=== PATIENT | male | born 1945 | race Caucasian/White ===

== ENCOUNTER 2016-12-10 20:58 | Inpatient (IN) ==
[2016-12-11] MEDS ORDERED: *HR* Morphine 2 MG/ML SYRINGE IVP PRN ×3 (00:08→14:12)
[2016-12-11] MEDS: *HR* HYDROcodone/Acet 10/325 mg TABLET PO PRN ×2 (00:32→08:29)
[2016-12-11] MEDS ORDERED: Ondansetron 4 MG/2 ML VIAL IVP PRN (01:23)
[2016-12-11] MEDS ORDERED: Acetaminophen 325 MG TABLET PO PRN (01:23)
[2016-12-11] MEDS ORDERED: Naloxone 0.4 MG/ML INJ IVP PRN (01:23)
[2016-12-11] MEDS ORDERED: *HR* Dextrose 50 % in Water (Syg) 50 ML SYRINGE IVP PRN (01:31)
[2016-12-11] MEDS ORDERED: D5% in Water 1,000 ML IVC PRN (01:31)
[2016-12-11] MEDS ORDERED: Dextrose Gel 15 GM PO PRN ×2 (01:31)
--- NOTE | 2016-12-11 02:01 | Internal Med History&Physical ---
Date of Encounter: 12/11/16 Time of Encounter: 00:20 Assessment and Plan (1) Acute pancreatitis Current visit: No Status: Acute Patient has elevated lipase, CT abdomen shows pancreatitis. Etiology is undetermined. Patient has elevated bilirubin. - We will keep patient nothing by mouth. - IV fluid. - Pain management. - Follow up lipase level. Qualifiers: Pancreatitis type: unspecified pancreatitis type Acute pancreatitis complication: unspecified Qualified Code(s): K85.90 - Acute pancreatitis without necrosis or infection, unspecified (2) Obstructive jaundice Current visit: Yes Status: Acute Patient has obstructive jaundice, he has dark urine for 2 weeks and body weight loss. Need to further investigation. - We will consult GI. - Liver and gallbladder ultrasound to rule out gallstone. - Pt had no signs of infection now (normal white count, no fever). (3) Hypertension Current visit: Yes Status: Acute Continue home medications. Qualifiers: Hypertension type: essential hypertension Qualified Code(s): I10 - Essential (primary) hypertension (4) Diabetes Current visit: Yes Status: Acute Patient has diabetes on Levimir 80 units qhs and metformin at home. We will decrease Levimir dose to 28 units at patient is nothing by mouth now. Covered also with sliding scale. Qualifiers: Diabetes mellitus type: type 2 Diabetes mellitus complication status: without complication Diabetes mellitus [facility] insulin use: with predatory animal exterminator use Qualified Code(s): E11.9 - Type 2 diabetes mellitus without complications ; Z79.4 - halfway (current) use of insulin (5) DVT prophylaxis Current visit: Yes Status: Acute Heparin subcutaneously Internal Medicine - H&P: HPI Chief complaint: Abdominal pain Admitted From: Home Plans for Post Hospital Care: Home History of present illness: Mr. Rain is a 71 year old male transferred from [facility] for abdominal pain. Patient said he has a chronic abdominal pain for weeks with decreased appetite. He lost 18-20 pounds over last 2 weeks. Since 2 days ago, the pain is getting worse, patient to feel nauseous, and vomited once yesterday. Patient denies a fever, diarrhea, shortness of breath, or diaphoresis. Patient said that the pain is located on epigastric area and radiated to both sides of flank , cramps in, 7-8 out of 10 yesterday and a 5 out of 10 when I saw him. Patient did complain dark urine for 2 weeks. In [place] emergency room, he was found elevated lipase, and an elevated total and direct bilirubin. CT abdominal shows acute pancreatitis. Patient was admitted for pancreatitis and obstructive jaundice. I discussed the CODE STATUS with patient. He is a full code. Past Med Surg Social Fam HX - Past Medical History Medical history: arthritis, diabetes, hypertension, other Psychiatric history: no psych history - Social History Smoking Status: Former smoker Smokeless Tobacco Status: No Alcohol use: occasionally Drug use: none - Family History Mother Living Status: Hx Family Endocrine Disorder: Yes (DM) Hx Family Neurologic Disorders: Yes (Dementia) Internal Medicine - H&P: Meds Adalimumab [Humira Psoriasis] 40 mg SQ Q2W 12/10/16 [History] Amlodipine Besylate 10 mg PO DAILY 12/10/16 [History] Esomeprazole Magnesium [Nexium] 40 mg PO DAILY 12/10/16 [History] Furosemide [Lasix] 80 mg PO DAILY PRN 12/10/16 [History] HYDROcodone/Acet 10/325 mg [[place] 10-325 mg] 1 tab PO Q6HR 12/10/16 [History] Insulin DETEMIR [Levemir] 80 unit SQ HS 12/10/16 [History] Meloxicam 15 mg PO DAILY 12/10/16 [History] Metoprolol 100 mg PO BID 12/10/16 [History] Sildenafil Citrate [Viagra] 100 mg PO 12/10/16 [History] Valsartan [Diovan] 320 mg PO DAILY 12/10/16 [History] Vit D3/Folic Acid/B2/B6/B12 [Folgard Tablet] 1 each PO DAILY 12/10/16 [History] metFORMIN [Glucophage] 500 mg PO BID 12/10/16 [History] Allergies No Known Allergies Allergy (Verified 12/10/16 17:37) All Systems PM: A 10-system review of systems was performed and is negative for pertinent findings except as documented above in the HPI. - Constitutional Vitals: Temp Pulse Resp BP Pulse Ox 98.0 F 72 16 174/88 96 12/10/16 23:16 12/10/16 23:16 12/10/16 23:16 12/10/16 23:16 12/10/16 23:16 General appearance: Present: A&O X 3, no acute distress, answers questions appropriately - Head Head exam: Present: atraumatic, normocephalic - Eye Eye exam: Present: PERRL, conjuntiva pink, sclera anicteric Pupils: Present: PERRL - Neck Neck exam general surgery: Present: supple, trachea midline. Absent: lymphadenopathy - Respiratory Respiratory exam: Present: CTAB. Absent: accessory muscle use, rales, rhonchi, wheezes - Cardiovascular Cardiovascular exam: Present: RRR, +S1, +S2. Absent: diastolic murmur, gallop, rubs, systolic murmur - GI/Abdominal GI/Abdominal exam: Present: normal bowel sounds, soft, tenderness (Mild tenderness in epigastric area without rebound or guarding), no peritoneal signs. Absent: distended - Extremities Exam Extremities exam: Present: warm, radial pulses palpable and symetrical. Absent : calf tenderness, cyanotic, pedal edema - Neurological Exam Neurological exam: Present: CN II-XII intact, oriented X3, no focal deficits. Absent: pronater drift, facial droop, speech deficit - Skin Skin exam: Present: dry, intact
[2016-12-11] MEDS: Insulin DETEMIR 100 UNIT/ML X5UNITS SQ SCH ×2 (02:23→23:31)
[2016-12-11] MEDS: 0.9 % Sodium Chloride 1,000 ML IVC SCH ×3 (02:24→22:00)
[2016-12-11 05:00] LABS: Eosinophils # 0.1 K/mcL (0.0-0.6); Eosinophils % 3.4 %; Hematocrit 39.2 % (37.5-50.1); Immature Granulocytes % 0.3 % (0-4); Lymphocytes # 1.5 K/mcL (0.6-4.6); Lymphocytes % 40.2 %; Mean Corpuscular HGB Conc 33.2 g/dL (31.6-35.5); Mean Corpuscular Hemoglobin 30.4 pg (28.0-33.3); Mean Corpuscular Volume 91.6 fL (83.0-100.0); Mean Platelet Volume 11.8 fL (9.4-12.4); Monocytes # 0.4 K/mcL (0.0-1.3); Monocytes % 9.7 %; Neutrophils # 1.7 K/mcL (1.6-8.9); Platelet Count 113 K/mcL (140-400); Red Blood Count 4.28 M/mcL (4.19-5.50); Red Cell Distribution Width 14.2 % (11.5-14.5); Segmented Neutrophils % 45.4 %
[2016-12-11 05:01] LABS: INR 1.1; Prothrombin Time 12.3 Seconds (9.4-12.1)
[2016-12-11 05:12] LABS: Albumin/Globulin Ratio 0.9 (1.1-2.2); Bilirubin,Direct 6.2 mg/dL (0.0-0.5); Bilirubin,Indirect 1.7 mg/dL (0.0-1.2); Bilirubin,Total 7.9 mg/dL (0.2-1.2); Globulin 3.3 g/dL (2.4-3.5); Total Protein 6.3 g/dL (6.0-8.3)
[2016-12-11 05:15] LABS: BUN/Creatinine Ratio 18 (6-26); Blood Urea Nitrogen 19 mg/dL (8-26); Calcium 8.9 mg/dL (8.6-10.8); Carbon Dioxide 21 mEq/L (19-29); Chloride 108 mEq/L (98-109); Chol/HDL Ratio 9.4 (0-4.9); Cholesterol 225 mg/dL (< 200); Glucose 119 mg/dL (70-99); HDL Cholesterol 24 mg/dL (40-59); LDL Cholesterol,Calculated 122 mg/dL (0-99); Magnesium 1.2 mg/dL (1.6-2.6); Osmolality,Calculated 293 (280-300); Phosphorous 2.4 mg/dL (2.3-4.7); Potassium 3.5 mEq/L (3.5-4.5); Sodium 140 mEq/L (136-145); Triglycerides 395 mg/dL (< 150); eGFR For African Americans > 60 (> 60); eGFR For Non-African Americans > 60 (> 60)
[2016-12-11] MEDS: *HR* Heparin 5,000 UNIT/ML VIAL SQ SCH ×2 (05:59→17:06)
[2016-12-11] MEDS: Insulin LISPRO 300 UNITS/3 ML VIAL SQ SCH ×4 (05:59→23:30)
[2016-12-11] MEDS ORDERED: Insulin LISPRO 300 UNITS/3 ML VIAL SQ SCH ×2 (07:30→21:00)
[2016-12-11] MEDS: Pantoprazole 40 MG VIAL IVP SCH (08:29)
[2016-12-11] MEDS: Valsartan 160 MG TABLET PO SCH (08:29)
[2016-12-11] MEDS: amLODIPine 5 MG TABLET PO SCH (08:29)
[2016-12-11] MEDS ORDERED: Lidocaine -MPF 2% 5 ML VIAL INFILT ONE (09:09)
[2016-12-11] MEDS ORDERED: *HR* Succinylcholine 200 MG/10 ML VIAL IVP ONE (09:09)
[2016-12-11] MEDS ORDERED: *HR* Propofol 200 MG/20 ML VIAL IVP ONE (09:09)
[2016-12-11] MEDS ORDERED: Ondansetron 4 MG/2 ML VIAL IVP ONE ×2 (09:09→14:12)
--- NOTE | 2016-12-11 11:05 | Anesthesia Evaluation PreOp ---
Date of Encounter: 12/11/16 Time of Encounter: 12:51 - Past History Planned Operation: EUS/ERCP Cardiac History: HTN Pulmonary History: Former smoker (quit in , smoked for 20 years) CURTAIN WORKER History: Denies Any Significant HX Other Medical History: Diabetes Type II, GERD, Other (obstructive jaundice, psoriatic arthritis) Anesthesia History: No Prior Anesthetic Complications, Past Anesthesia Alcohol Use: occasionally Drug use: none Medications and Allergies Adalimumab [Humira Psoriasis] 40 mg SQ Q2W 12/10/16 [History] Amlodipine Besylate 10 mg PO DAILY 12/10/16 [History] Esomeprazole Magnesium [Nexium] 40 mg PO DAILY 12/10/16 [History] Furosemide [Lasix] 80 mg PO DAILY PRN 12/10/16 [History] HYDROcodone/Acet 10/325 mg [[place] 10-325 mg] 1 tab PO Q6HR PRN 12/10/16 [History ] Insulin DETEMIR [Levemir] 80 unit SQ HS 12/10/16 [History] Meloxicam 15 mg PO DAILY 12/10/16 [History] Sildenafil Citrate [Viagra] 100 mg PO AD PRN 12/10/16 [History] Valsartan [Diovan] 320 mg PO DAILY 12/10/16 [History] metFORMIN [Glucophage] 500 mg PO BID 12/10/16 [History] Cholecalciferol (D-3) [Vitamin D] 2,000 unit PO DAILY 12/11/16 [History] Exenatide Microspheres [Bydureon Pen] 2 mg SQ WE 12/11/16 [History] Metoprolol [Lopressor] 100 mg PO BID 12/11/16 [History] Pioglitazone HCl [Pioglitazone HCl] 30 mg PO DAILY 12/11/16 [History] Allergies No Known Allergies Allergy (Verified 12/11/16 11:34) - Meds/Allergy Pre-op Review Medications Reviewed: Yes Allergies Reviewed: Yes Beta Blockers on Current Med List: Yes If Beta Blockers taken, Date/Time (Last Dose taken): 12/11/2016 at 0829 Anesthesia Results - Labs 12/11/16 03:31 12/11/16 03:31 - Imaging EKG: report reviewed (10/02/2014 SR, 1st degree AV block, PVC's with marked rhythm irregularity) Anesthesia Exam Vital Signs/O2 Sat/Glucose, Most Recent Temp Pulse Resp BP Pulse Ox 98.5 F 77 17 170/90 95 12/11/16 10:32 12/11/16 10:32 12/11/16 10:32 12/11/16 10:32 12/11/16 10:32 Blood Glucose* 107 Height: 5'10'' Weight: 238 lbs NPO (# of Hours): 8 Pain Scale: 0 Pain Scale Used: Numeric (1 - 10) - HEENT Pupil (Motor): EOMI Mallampati: II Teeth: Normal Oral Opening: Greater than 3 - CURTAIN WORKER LOC: Oriented CURTAIN WORKER Motor: Normal RUE, Normal LUE, Normal RLE, Normal LLE, Normal Face CURTAIN WORKER Sensory: Normal: RUE, LUE, RLE, LLE, Face - Cardiac Rhythm: Regular Murmur: None - Pulmonary Breath Sounds: bilateral Clear Respiratory Effort: Symmetrical Anesthesia Assess/Plan ASA Score: 3 Modified Kelly Scale for Level of Consciousness: Cooperative, oriented, and tranquil Anesthetic Plan: General Monitoring Plan: Standard Monitors Recovery Plan: PACU
--- NOTE | 2016-12-11 12:12 | Gastroenterology Consult Note ---
<Jac Vazquez - Last Filed: 12/11/16 12:10> Date of Encounter: 12/11/16 Time of Encounter: 11:15 - Assessment and plan (1) Obstructive jaundice Current Visit: Yes Status: Acute Assessment and plan: Total bili 7.9, AST 180, ALT 339, alkaline phosphatase 162. Plan for EUS and ERCP today. Concern for mass due to rapid weight loss and elevated hepatic panel. Keep pt NPO. (2) Acute pancreatitis Current Visit: No Status: Acute Assessment and plan: CT A/P consistent with acute pancreatitis. Lipase 146 on presentation 132 today. Triglycerides elevated at 395. Check KINGS, ionized calcium, and IgG 4. Continue IV fluids, antibiotics, and pain control. Bilirubin and LFTs remain elevated. Qualifiers: Pancreatitis type: unspecified pancreatitis type Acute pancreatitis complication: unspecified Qualified Code(s): K85.90 - Acute pancreatitis without necrosis or infection, unspecified (3) Unintentional weight loss Current Visit: Yes Status: Acute Assessment and plan: Patient has lost approximately 20 pounds in the past 2 weeks. Plan for EUS and ERCP today. Keep patient NPO. - Time Spent With Patient Total time spent is greater than 50% in coordination of care (as documented) at patient's floor/unit and/or counseling patient: GI History of Present Illness - Data of Consult Patient: new to practice Consult date: 12/11/16 Requesting Physician: Adi Eid MD - Consult Narrative Reason for consult: Obstructive jaundice History of present illness: Mr. Rain is a 71 year old male with PMHx of arthritis, DM, HTN who was transferred from [place] ED for epigastric abdominal pain that radiates to bilateral flanks. He reported chronic abdominal pain for weeks with decreased appetite. He lost 18-20 lbs over the past 2 weeks. The pain has been worsening over the past few days and he is experiencing nausea and vomiting. He denies fever, chest pain, SOB, hematemesis, diarrhea, melena, or hematochezia. Patient did complain dark urine for 2 weeks. In [place] ED, he was found elevated lipase, and an elevated total and direct bilirubin. CT abdominal shows acute pancreatitis. We have been consulted for pancreatitis and obstructive jaundice. Procedures: Colonoscopy 11/28/2013 Dr. 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, 4mm hyperplastic polyp in rectum, diverticulosis NSAIDs: Meloxicam Anticoagulation: None Past Med Surg Social Fam HX - Past Medical History Medical history: arthritis, diabetes, hypertension, other Psychiatric history: no psych history - Social History Smoking Status: Former smoker Smokeless Tobacco Status: No Alcohol use: occasionally Drug use: none - Family History Mother Living Status: Hx Family Endocrine Disorder: Yes (DM) Hx Family Neurologic Disorders: Yes (Dementia) - Gastrointestinal Gastrointestinal: Present: as per HPI - Constitutional Constitutional: as per HPI - EENT Eyes: as per HPI Ears: Present: as per HPI Nose, mouth and throat: Present: as per HPI - Cardiovascular Cardiovascular ROS: Present: as per HPI - Respiratory Respiratory IM: Present: as per HPI - Genitourinary Genitourinary: Absent: change in color, Urinary frequency - Neurological ROS Neurological GI: Present: as per HPI - Hematologic/Lymphatic Hematologic/Lymphatic pediatric: Present: as per HPI - Musculoskeletal Musculoskeletal ROS GI: Present: as per HPI - Integumentary Integumentary GI: Present: as per HPI - Psychiatric ROS Psychiatric GI: Present: as per HPI - Endocrine Endocrine IM: Present: as per HPI - Constitutional Vitals: Temp Pulse Resp BP Pulse Ox 98.5 F 77 17 170/90 95 12/11/16 10:32 12/11/16 10:32 12/11/16 10:32 12/11/16 10:32 12/11/16 10:32 General appearance: Present: cooperative, A&O X 3, no acute distress, answers questions appropriately - Head Head exam: Present: atraumatic, normocephalic - Eye Eye exam: Present: scleral icterus - ENT ENT exam: Present: mucous membranes dry - Neck Neck exam general surgery: Present: normal inspection, trachea midline - Respiratory Respiratory exam: Present: CTAB. Absent: rales, rhonchi - Cardiovascular Cardiovascular exam: Present: RRR, +S1, +S2 - GI/Abdominal GI/Abdominal exam: Present: soft, tenderness (Epigastric), no peritoneal signs. Absent: distended, firm, guarding - Rectal Rectal exam: Present: deferred - Extremities Exam Extremities exam: Present: warm - Neurological Exam Neurological exam: Present: no focal deficits - Psychiatric Psychiatric exam: Present: normal affect, normal mood - Skin Skin exam: Present: dry, intact, warm. Absent: normal color (Jaundiced) Results - Labs CBC & Chem 7: 12/11/16 03:31 12/11/16 03:31 Labs: Last Result Calcium 8.9 mg/dL (8.6-10.8) 12/11/16 03:31 Triglycerides 395 mg/dL (< 150) H 12/11/16 03:31 Entire Visit Hgb 13.0 g/dL (12.9-16.9) 12/11/16 03:31 Hct 39.2 % (37.5-50.1) 12/11/16 03:31 PT 12.3 Seconds (9.4-12.1) H 12/11/16 03:31 Total Bilirubin 7.9 mg/dL (0.2-1.2) H 12/11/16 03:31 AST 180 Units/L (5-34) H 12/11/16 03:31 ALT 339 Units/L (0-55) H 12/11/16 03:31 Lipase 132 Units/L (8-78) H 12/11/16 03:31 - ABG ABG results: PT/INR, D-dimer PT 12.3 Seconds (9.4-12.1) H 12/11/16 03:31 Consult Discharge Plan - Plan Referrals: Ivan Ayala MD [Primary Care Provider] - <Chirag Fox - Last Filed: 12/11/16 18:33> Date of Encounter: 12/11/16 Time of Encounter: 14:00 - Time Spent With Patient Total time spent is greater than 50% in coordination of care (as documented) at patient's floor/unit and/or counseling patient: GI History of Present Illness - Data of Consult Requesting Physician: Adi Eid MD - Consult Narrative History of present illness: Mr. Rain is a 71 year old male - Constitutional Vitals: Temp Pulse Resp BP Pulse Ox 97.7 F 96 18 166/73 95 12/11/16 17:04 12/11/16 18:06 12/11/16 18:06 12/11/16 18:06 12/11/16 18:06 Results - Labs CBC & Chem 7: 12/11/16 03:31 12/11/16 03:31 Labs: Last Result Calcium 8.9 mg/dL (8.6-10.8) 12/11/16 03:31 Triglycerides 395 mg/dL (< 150) H 12/11/16 03:31 Entire Visit Hgb 13.0 g/dL (12.9-16.9) 12/11/16 03:31 Hct 39.2 % (37.5-50.1) 12/11/16 03:31 PT 12.3 Seconds (9.4-12.1) H 12/11/16 03:31 Total Bilirubin 7.9 mg/dL (0.2-1.2) H 12/11/16 03:31 AST 180 Units/L (5-34) H 12/11/16 03:31 ALT 339 Units/L (0-55) H 12/11/16 03:31 Lipase 132 Units/L (8-78) H 12/11/16 03:31 - ABG ABG results: PT/INR, D-dimer PT 12.3 Seconds (9.4-12.1) H 12/11/16 03:31 - Impressions Impressions Cath/Invasive Procedure 12/11/16 14:30 IMPRESSION: Fluoroscopy provided for ERCP procedure. Please see the intraoperative note for complete details. D/ / Mukesh Becker MD / Mukesh Becker MD Interpreting Provider: Mukesh Becker MD - Attending Attestation I examined this patient and my medical decision-making was reviewed with the [facility]/PA/Advanced Practice Nurse/Resident Physician. I agree with the documented findings, disposition and treatment plan as described except to the extent set forth below.
[2016-12-11] MEDS ORDERED: *HR* FentaNYL (PF) 100 MCG/2 ML VIAL ONE (12:22)
[2016-12-11] MEDS ORDERED: *HR* Promethazine 25 MG/ML VIAL IVP PRN (14:12)
[2016-12-11] MEDS ORDERED: *HR* Labetalol 100 MG/20 ML MDV IVP PRN (14:12)
[2016-12-11] MEDS ORDERED: *HR* HYDROmorphone 2 MG/ML SYRINGE IVP ONE (15:03)
[2016-12-11] MEDS ORDERED: *HR* HYDROmorphone 2 MG/ML SYRINGE ONE (15:03)
[2016-12-11] MEDS ORDERED: Indomethacin 50 MG SUPP.RECT RC ONE (16:12)
--- NOTE | 2016-12-11 16:28 | Anesthesia Evaluation Post Op ---
Date of Encounter: 12/11/16 Time of Encounter: 16:28 - Vital Signs Vital Signs: Selected Entries 12/11/16 16:22 Pulse Rate 84 Respiratory Rate 15 Blood Pressure 165/94 O2 Sat by Pulse Oximetry 93 - Lungs Lungs: Clear Ascult./Percussion - Airway Airway: Non-obstructed - Cardiovascular Regular Rate - Mental Status Mental Status: Alert & Oriented, Answers Appropriately - Pain Pain Scale: 0 Pain Scale used: Numeric (1 - 10) - Nausea Vomiting Nausea Vomiting: Not Present - Hydration Hydration: Ice chips (refused), Has not voided - Discharge PostOp Status: Transfer Patient to floor
[2016-12-11] MEDS: *HR* HYDROmorphone (PF) 1 MG/ML SYRINGE IVP PRN (19:19)
[2016-12-12] MEDS: *HR* HYDROmorphone (PF) 1 MG/ML SYRINGE IVP PRN ×2 (01:21→08:29)
[2016-12-12] MEDS: 0.9 % Sodium Chloride 1,000 ML IVC SCH (03:04)
[2016-12-12] MEDS: *HR* Heparin 5,000 UNIT/ML VIAL SQ SCH (05:26)
[2016-12-12] MEDS: Insulin LISPRO 300 UNITS/3 ML VIAL SQ SCH ×2 (05:28→11:32)
[2016-12-12 05:47] LABS: Hemoglobin 13.1 g/dL (12.9-16.9); Mean Corpuscular HGB Conc 34.5 g/dL (31.6-35.5); Mean Corpuscular Hemoglobin 31.6 pg (28.0-33.3); Mean Corpuscular Volume 91.8 fL (83.0-100.0); Mean Platelet Volume 12.2 fL (9.4-12.4); Platelet Count 116 K/mcL (140-400); Red Blood Count 4.14 M/mcL (4.19-5.50); Red Cell Distribution Width 14.1 % (11.5-14.5)
[2016-12-12 06:06] LABS: Alanine Aminotransferase 330 Units/L (0-55); Albumin 2.9 g/dL (3.5-5.0); Albumin/Globulin Ratio 0.9 (1.1-2.2); Alkaline Phosphatase 156 Units/L (38-126); Aspartate Amino Transferase 161 Units/L (5-34); BUN/Creatinine Ratio 18 (6-26); Bilirubin,Total 4.9 mg/dL (0.2-1.2); Blood Urea Nitrogen 15 mg/dL (8-26); Calcium 8.4 mg/dL (8.6-10.8); Carbon Dioxide 18 mEq/L (19-29); Chloride 108 mEq/L (98-109); Globulin 3.1 g/dL (2.4-3.5); Glucose 168 mg/dL (70-99); Osmolality,Calculated 289 (280-300); Sodium 137 mEq/L (136-145); eGFR For African Americans > 60 (> 60); eGFR For Non-African Americans > 60 (> 60)
[2016-12-12] MEDS: Pantoprazole 40 MG VIAL IVP SCH (08:28)
[2016-12-12] MEDS: amLODIPine 5 MG TABLET PO SCH (08:29)
[2016-12-12] MEDS: Valsartan 160 MG TABLET PO SCH (08:29)
[2016-12-12] MEDS ORDERED: *HR* HYDROcodone/Acet 10/325 mg TABLET PO PRN (11:31)
[2016-12-12] MEDS ORDERED: 0.9 % Sodium Chloride 1,000 ML IVC SCH (11:32)
[2016-12-12] MEDS ORDERED: Insulin LISPRO 300 UNITS/3 ML VIAL SQ SCH (12:00)
--- NOTE | 2016-12-12 13:10 | Discharge Summary ---
Date of Encounter: 12/12/16 Time of Encounter: 10:00 - Discharge Diagnosis (1) Obstructive jaundice Priority: Primary Status: Acute Comments: Due to biliary stricture (2) Acute pancreatitis Priority: Secondary Status: Acute Qualifiers: Pancreatitis type: biliary Acute pancreatitis complication: no infection or necrosis Qualified Code(s): K85.10 - Biliary acute pancreatitis without necrosis or infection (3) Hypertension Priority: Secondary Status: Chronic Qualifiers: Hypertension type: essential hypertension Qualified Code(s): I10 - Essential (primary) hypertension (4) Diabetes Priority: Secondary Status: Acute Qualifiers: Diabetes mellitus type: type 2 Diabetes mellitus complication status: without complication Diabetes mellitus manager long term care insulin use: with halfway use Qualified Code(s): E11.9 - Type 2 diabetes mellitus without complications ; Z79.4 - terminal operator (current) use of insulin (5) Unintentional weight loss Priority: Secondary Status: Acute - Discharge Medications Home Medications: 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] 40 mg SQ Q2W 12/10/16 [History] Amlodipine Besylate 10 mg PO DAILY 12/10/16 [History] Esomeprazole Magnesium [Nexium] 40 mg PO DAILY 12/10/16 [History] Furosemide [Lasix] 80 mg PO DAILY PRN 12/10/16 [History] HYDROcodone/Acet 10/325 mg [[place] 10-325 mg] 1 tab PO Q6HR PRN 12/10/16 [History ] Insulin DETEMIR [Levemir] 80 unit SQ HS 12/10/16 [History] Meloxicam 15 mg PO DAILY 12/10/16 [History] Sildenafil Citrate [Viagra] 100 mg PO AD PRN 12/10/16 [History] Valsartan [Diovan] 320 mg PO DAILY 12/10/16 [History] metFORMIN [Glucophage] 500 mg PO BID 12/10/16 [History] Cholecalciferol (D-3) [Vitamin D] 2,000 unit PO DAILY 12/11/16 [History] Exenatide Microspheres [Bydureon Pen] 2 mg SQ WE 12/11/16 [History] Metoprolol [Lopressor] 100 mg PO BID 12/11/16 [History] Pioglitazone HCl 30 mg PO DAILY 12/11/16 [History] Allergies/Adverse Reactions: Allergies No Known Allergies Allergy (Verified 12/11/16 11:34) Procedures/tests Complete & Pending: Procedures Performed prior 72 hours Category Date Time Status US abdomen limited [US] Routine Exams 12/12/16 10:30 Draft Date of admission: 12/11/16 01:23 Primary care physician: Ivan Ayala MD Consults: 12/10/16 23:36 Consult to Nutrition [CONS] Routine Comment: Consulting Provider: NUTRITION Reason for Dietary Consult: MST Score 12/11/16 01:34 Consult to Gastroenterology [CONS] Routine Consulting Provider: [facility] [place] Reason for Consult: Obstructive jaundice, pancreatitis. Call Completed: No Discharging clinician: Alyssa Beckham Anticipated date of discharge: 12/12/16 - Patient Status Disposition: Home, Self-Care Condition: Good Functional capacity at discharge: independent ambulation Overall status at discharge: patient is back to baseline - Discharge Instructions Instructions: Pancreatitis (DC) Follow Up With: Ivan Ayala MD [Primary Care Provider] - Additional Instructions: Follow up with GI in 1 week - Diet and Activity Activity: increase activity as tolerated Diet: advance to your usual diet, diabetic diet, low fat, low cholesterol, low salt diet Hospital course: Mr. Rain is a 71 year old male patient with history of essential hypertension , diabetes mellitus type 2 who was admitted here with obstructive jaundice and acute pancreatitis. Patient has also been having unintentional weight loss recently. On evaluation, he had elevated bilirubin. Patient was evaluated by GI and underwent upper GI endoscopy and ERCP. Patient was found to have biliary stricture and a temporary stent was placed. Patient has been doing well since then. Tolerating diet well. I discussed his case with GI and they recommended outpatient follow-up for further evaluation and follow-up of pathology results. Patient is clinically stable for discharge. An ultrasound of the abdomen did not reveal any gallstones. - Time Spent with Patient Total time spent providing and/or coordinating discharge services: Greater than 30 minutes (35 min) - Constitutional Vitals: Temp Pulse Resp BP Pulse Ox 98.2 F 87 18 173/92 95 12/12/16 11:02 12/12/16 11:02 12/12/16 11:02 12/12/16 11:02 12/12/16 11:02 General appearance: Present: cooperative, A&O X 3, no acute distress, answers questions appropriately - Respiratory Respiratory exam: Present: CTAB. Absent: accessory muscle use, rales, rhonchi, wheezes - Cardiovascular Cardiovascular exam: Present: RRR, +S1, +S2. Absent: diastolic murmur, gallop, rubs, systolic murmur - GI/Abdominal GI/Abdominal exam: Present: normal bowel sounds, soft, no peritoneal signs. Absent: distended, tenderness - Extremities Exam Extremities exam: Present: warm, radial pulses palpable and symetrical. Absent : calf tenderness, cyanotic, pedal edema - Neurological Exam Neurological exam: Present: alert, oriented X3, no focal deficits. Absent: facial droop, speech deficit - Skin Skin exam: Present: dry, intact - Attending Attestation This document has been at least partially created by [employer] voice recognition technology by Dr. Beckham. Errors in grammar, wording or other phrases may exist. If errors are found after the documentation is signed, they will be addressed individually in the addendum section of this document when appropriate.
[2016-12-12 14:44] VITALS: BP 163/81
--- NOTE | 2016-12-12 14:54 | Event Note ---
Date of Encounter: 12/12/16 Time of Encounter: 14:00 Patient seen at the bedside. Per patient abdominal pain is much improved and he had regular diet and is feeling better. Per patient urine is clearing up. Abdomen is nontender. Mild jaundice. Assessment: Patient with distal CBD stricture status post EUS ERCP with stent placement and biopsies of the stricture size. Question is whether the stricture is due to cholangiocarcinoma or due to pancreatitis as CT did showed some inflammation around the pancreas concerning for that. Recommendation: Patient will follow up with GI as an outpatient next week.
[2016-12-13 08:06] LABS: ANA IgG by ELISA NONE DETECTED (None Detected)
== END 2016-12-12 16:18 | disposition home or self-care (01) | DRG 438 ==
LOC: 3ANU → SUATTDRO 12-11 01:23
PROVIDERS: ADMIT Hospitalist; ATTEND Internal Medicine
PROC: ENDOEUS (2016-12-11 13:00)